=== PATIENT | female | born 1960 | race American Indian/Alaskan Native ===

== ENCOUNTER 2020-07-31 08:34 | Observation (INO) | payer OTHER ==
--- NOTE | 2020-07-31 08:41 | Emergency Department Report ---
ED Neuro Deficit HPI - General Chief Complaint: Neuro Symptoms/Deficit Stated Complaint: STROKE SX Time Seen by Provider: 07/31/20 08:40 Source: patient Mode of arrival: Ambulatory Limitations: No Limitations - History of Present Illness Initial Comments: 59-year-old female the past medical history of hypertension, smoker, and CVA 4 to 5 years ago without residual deficits presents to the hospital complains of neurologic deficits. Patient woke up this morning about 8 to 8:30 AM. She states she felt uncoordinated while getting dressed and having difficulty fastening her necklace. She states she was unable to focus and felt confused. At work today she was asking where her glasses were even though they were in her hand and also had difficulty holding objects in her right hand and writing her signature. Patient is right-hand dominant. Patient states she has similar symptoms involving the left hand with previous CVA in the past. Patient is compliant with her blood pressure medication every morning with last dose this a.m. She does not take aspirin daily. She denies pain. - Related Data Home Medications: Home Medications Medication Instructions Recorded Confirmed Last Taken Lisinopril [Zestril] 5 mg PO DAILY 07/31/20 07/31/20 07/31/20 Naproxen 500 mg PO DAILY 07/31/20 07/31/20 1 Day Ago ~07/30/20 Allergies/Adverse Reactions: Allergies Allergy/AdvReac Type Severity Reaction Status Date / Time codeine Allergy Unknown Verified 07/31/20 08:35 ED Review of Systems ROS: Stated complaint: STROKE SX Other details as noted in HPI Comment: All other systems reviewed and negative ED Past Medical Hx - Past Medical History Previous Medical History?: Yes Hx CVA: Yes - Surgical History Past Surgical History?: Yes Additional Surgical History: thyroid surgery. hysterectomy - Medications Home Medications: Home Medications Medication Instructions Recorded Confirmed Last Taken Type Lisinopril [Zestril] 5 mg PO DAILY 07/31/20 07/31/20 07/31/20 History Naproxen 500 mg PO DAILY 07/31/20 07/31/20 1 Day Ago History ~07/30/20 ED Neuro Physical Exam - General Limitations: No Limitations Suspected Stroke: Yes - Neurological Exam Neurological exam: Present: alert - NIHSS Assessment Interval: Baseline 1a. Level of Consciousness: alert/keenly responsive 1b. LOC Questions: answers both correctly 1c. LOC Commands: performs tasks correctly 2. Best Gaze: normal 3. Visual: no visual loss 4. Facial Palsy: normal symmetrical movement 5b. Motor Arm Right: no drift 5a. Motor Arm Left: no drift 6a. Motor Leg Left: no drift 6b. Motor Leg Right: no drift 7. Limb Ataxia: absent 8. Sensory: normal 9. Best Language: no aphasia 10. Dysarthria: mild/moderate dysarthria 11. Extinction/Inattention: no abnormality Total Score: 1 Stroke Severity: Minor Stroke ED Course Vital Signs 07/31/20 07/31/20 07/31/20 08:38 08:56 09:00 Pulse Rate 92 H 92 H 71 Respiratory 18 11 L Rate Blood Pressure 220/107 Blood Pressure 253/158 [Left] O2 Sat by Pulse 98 91 Oximetry 07/31/20 07/31/20 07/31/20 09:05 09:20 09:25 Pulse Rate 85 79 Respiratory 17 17 Rate Blood Pressure 206/110 210/109 Blood Pressure [Left] O2 Sat by Pulse 99 Oximetry 07/31/20 07/31/20 07/31/20 09:30 09:45 10:00 Pulse Rate 67 61 62 Respiratory 19 19 17 Rate Blood Pressure 206/110 203/105 208/114 Blood Pressure [Left] O2 Sat by Pulse 99 100 Oximetry 07/31/20 07/31/20 07/31/20 10:05 10:16 10:38 Pulse Rate 64 69 Respiratory 15 16 Rate Blood Pressure 208/114 210/92 194/80 Blood Pressure [Left] O2 Sat by Pulse 97 100 Oximetry 07/31/20 07/31/20 07/31/20 10:46 11:00 11:16 Pulse Rate 65 61 61 Respiratory 14 14 17 Rate Blood Pressure 185/149 210/103 216/81 Blood Pressure [Left] O2 Sat by Pulse 100 98 100 Oximetry 07/31/20 07/31/20 07/31/20 11:50 12:00 12:16 Pulse Rate 67 68 67 Respiratory 19 20 20 Rate Blood Pressure 216/81 222/99 222/90 Blood Pressure [Left] O2 Sat by Pulse 98 100 Oximetry 07/31/20 07/31/20 07/31/20 12:30 13:00 13:16 Pulse Rate 67 Respiratory 22 17 13 Rate Blood Pressure 222/90 173/104 197/110 Blood Pressure [Left] O2 Sat by Pulse 97 91 89 Oximetry 07/31/20 07/31/20 07/31/20 13:30 13:46 14:00 Pulse Rate Respiratory 21 15 Rate Blood Pressure 200/93 198/87 198/87 Blood Pressure [Left] O2 Sat by Pulse 95 74 L Oximetry 07/31/20 14:16 Pulse Rate Respiratory 18 Rate Blood Pressure 204/92 Blood Pressure [Left] O2 Sat by Pulse 98 Oximetry - Consultations Consultation #1: 07/31/20 09:19 Case was discussed with Dr. Gandhi teleneurologist who found the NIH stroke scale to be 0 and stroke symptoms greater than 4.5 hours since patient woke up experiencing neurologic deficits. Therefore, patient is not a TPA candidate. Recommend blood pressure control with initial systolic goal of less than 200 and she ordered labetalol 10 mg IV. - Lab Data Result diagrams: 07/31/20 08:39 07/31/20 08:39 Lab Results 07/31/20 07/31/20 07/31/20 Range/Units 08:39 08:39 08:39 WBC 6.8 (4.5-11.0) K/mm3 RBC 4.57 (3.65-5.03) M/mm3 Hgb 14.2 (10.1-14.3) gm/dl Hct 41.1 (30.3-42.9) % MCV 90 (79-97) fl MCH 31 (28-32) pg MCHC 35 H (30-34) % RDW 13.4 (13.2-15.2) % Plt Count 329 (140-440) K/mm3 Lymph % (Auto) 32.0 (13.4-35.0) % [place] % (Auto) 8.2 H (0.0-7.3) % Eos % (Auto) 4.8 H (0.0-4.3) % Baso % (Auto) 0.8 (0.0-1.8) % Lymph # (Auto) 2.2 (1.2-5.4) K/mm3 [place] # (Auto) 0.6 (0.0-0.8) K/mm3 Eos # (Auto) 0.3 (0.0-0.4) K/mm3 Baso # (Auto) 0.1 (0.0-0.1) K/mm3 Seg Neutrophils % 54.2 (40.0-70.0) % Seg Neutrophils # 3.7 (1.8-7.7) K/mm3 PT 12.6 (12.2-14.9) Sec. INR 0.93 (0.87-1.13) APTT 25.2 (24.2-36.6) Sec. Thrombin Time (15.1-19.6) Sec. Sodium 138 (137-145) mmol/L Potassium 3.6 (3.6-5.0) mmol/L Chloride 100.3 (98-107) mmol/L Carbon Dioxide 27 (22-30) mmol/L Anion Gap 14 mmol/L BUN 11 (7-17) mg/dL Creatinine 0.8 (0.6-1.2) mg/dL Estimated GFR > 60 ml/min BUN/Creatinine Ratio 14 % Glucose 160 H (65-100) mg/dL Hemoglobin A1c (4-6) % Calcium 9.8 (8.4-10.2) mg/dL Troponin T < 0.010 (0.00-0.029) ng/mL 07/31/20 07/31/20 Range/Units 08:39 08:39 WBC (4.5-11.0) K/mm3 RBC (3.65-5.03) M/mm3 Hgb (10.1-14.3) gm/dl Hct (30.3-42.9) % MCV (79-97) fl MCH (28-32) pg MCHC (30-34) % RDW (13.2-15.2) % Plt Count (140-440) K/mm3 Lymph % (Auto) (13.4-35.0) % [place] % (Auto) (0.0-7.3) % Eos % (Auto) (0.0-4.3) % Baso % (Auto) (0.0-1.8) % Lymph # (Auto) (1.2-5.4) K/mm3 [place] # (Auto) (0.0-0.8) K/mm3 Eos # (Auto) (0.0-0.4) K/mm3 Baso # (Auto) (0.0-0.1) K/mm3 Seg Neutrophils % (40.0-70.0) % Seg Neutrophils # (1.8-7.7) K/mm3 PT (12.2-14.9) Sec. INR (0.87-1.13) APTT (24.2-36.6) Sec. Thrombin Time 15.6 (15.1-19.6) Sec. Sodium (137-145) mmol/L Potassium (3.6-5.0) mmol/L Chloride (98-107) mmol/L Carbon Dioxide (22-30) mmol/L Anion Gap mmol/L BUN (7-17) mg/dL Creatinine (0.6-1.2) mg/dL Estimated GFR ml/min BUN/Creatinine Ratio % Glucose (65-100) mg/dL Hemoglobin A1c 6.7 H (4-6) % Calcium (8.4-10.2) mg/dL Troponin T (0.00-0.029) ng/mL - Radiology Data Radiology results: report reviewed CT head/brain wo con INDICATION: neuro deficits <6hrs or sx present upon awakening. TECHNIQUE: Routine CT head without contrast. All CT scans at this location are performed using CT dose reduction for ALARA by means of automated exposure control. COMPARISON: None. FINDINGS: BRAIN / INTRACRANIAL CONTENTS: No acute hemorrhage, mass effect, midline shift, or hydrocephalus. No appreciable acute large territorial or lacunar infarct. There are moderate areas of hypoat tenuation in the white matter of the cerebral hemispheres. Given the location and appearance, these most likely reflect chronic small vessel ischemic change. These are considered to be advanced (even for the patient's age) and probably indicate chronic hypertension, diabetes, and/or chronic kidney disease. ORBITS: No significant abnormality of visualized orbits. 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 There is no mucosal thickening. ADDITIONAL FINDINGS: None. IMPRESSION: 1. No acute intracranial abnormality. - Medical Decision Making 59-year-old female presents to the hospital with neurologic symptoms of mild confusion, difficulty focusing, right hand weakness, and change in speech fluency with mild dysarthria. Patient deemed not a TPA candidate by teleneurologist. Blood pressure extremely elevated upon presentation and patient does not know her baseline BP. She states she is compliant with her blood pressure medication. Patient passed swallowing screen and was provided as pirin after negative CT head report resulted. Patient will be admitted to the hospital for hypertensive encephalopathy versus TIA and further stroke work Case discussed with hospitalist at 9:35 AM patient to be admitted to Dr. Vásquez Critical Care Time: Yes Critical care time in (mins) excluding proc time.: 35 Critical care attestation.: If time is entered above; I have spent that time in minutes in the direct care of this critically ill patient, excluding procedure time. ED Disposition Clinical Impression: Hypertensive encephalopathy, TIA (transient ischemic attack) Disposition: 09 OP ADMIT IP TO THIS HOSP Is pt being admited?: Yes Condition: Stable
[2020-07-31 08:47] LABS: Basophils # (Auto) 0.1 K/mm3 (0.0-0.1); Basophils % (Auto) 0.8 % (0.0-1.8); Eosinophils # (Auto) 0.3 K/mm3 (0.0-0.4); Eosinophils % (Auto) 4.8 % (0.0-4.3); Hematocrit 41.1 % (30.3-42.9); Hemoglobin 14.2 gm/dl (10.1-14.3); Lymphocytes # (Auto) 2.2 K/mm3 (1.2-5.4); Mean Corpuscular HGB Conc 35 % (30-34); Mean Corpuscular Volume 90 fl (79-97); Monocytes # (Auto) 0.6 K/mm3 (0.0-0.8); Monocytes % (Auto) 8.2 % (0.0-7.3); Platelet Count 329 K/mm3 (140-440); Red Blood Count 4.57 M/mm3 (3.65-5.03); Red Cell Distribution Width 13.4 % (13.2-15.2)
[2020-07-31 08:57] LABS: INR 0.93 (0.87-1.13)
[2020-07-31 08:58] LABS: Partial Thromboplastin Time 25.2 Sec. (24.2-36.6)
--- NOTE | 2020-07-31 09:02 | Cat Scan Report ---
CT head/brain wo con INDICATION: neuro deficits <6hrs or sx present upon awakening. TECHNIQUE: Routine CT head without contrast. All CT scans at this location are performed using CT dos e reduction for ALARA by means of automated exposure control. COMPARISON: None. FINDINGS: BRAIN / INTRACRANIAL CONTENTS: No acute hemorrhage, mass effect, midline shift, or hydrocephalus. No appreciable acute large territorial or lacunar infarct. There are moderate areas of hypoattenuation i n the white matter of the cerebral hemispheres. Given the location and appearance, these most likely reflect chronic small vessel ischemic change. These are considered to be advanced (even for the patie nt's age) and probably indicate chronic hypertension, diabetes, and/or chronic kidney disease. ORBITS: No significant abnormality of visualized orbits. 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 There is no mucosal thickening. ADDITIONAL FINDINGS: None. IMPRESSION: 1. No acute intracranial abnormality. CODE STROKE: Time of Communication (HISTOLOGY SPECIALIST/CDT): 7:56 AM Licensed Practitioner Receiving Report: Dr. Larkin Signer Name: Mic Santillan MD Signed: 07/31/2020 8:58 AM Workstation Name: [id number]
--- NOTE | 2020-07-31 09:03 | Consultation ---
Medications and Allergies Allergies Allergy/AdvReac Type Severity Reaction Status Date / Time codeine Allergy Unknown Verified 07/31/20 08:35 Active Meds: Active Medications Labetalol HCl (Labetalol) 10 mg IV ONCE ONE Stop: 07/31/20 09:00 Physical Examination - Vital Signs Vital Signs: Vital Signs Pulse Resp BP Pulse Ox 92 H 18 253/158 98 07/31/20 08:38 07/31/20 08:38 07/31/20 08:38 07/31/20 08:38 Results - Laboratory Findings CBC and BMP: 07/31/20 08:39 Abnormal Lab Findings: Abnormal Labs 07/31/20 08:39 MCHC 35 H Crowley % (Auto) 8.2 H Eos % (Auto) 4.8 H Assessment and Plan [facility] Date of Service: 07/31/2020 08:37:12 Impression: Transient Ischemic Attack v Hypertensive Encephalopathy Comments/Sign-Out: 59 yo F h/o HTN, previous stroke with L hand weakness, no residual symptoms p/w slurred speech and left sided weakness upon awakening this morning. Pt states she took her lisinopril this morning. She arrived by private vehicle. Pt is able to give history. Mechanism of Stroke: Not Clear Metrics: Last Known Well: 07/30/2020 20:00:00 [facility] Notification Time: 07/31/2020 08:36:41 Arrival Time: 07/31/2020 08:35:00 Stamp Time: 07/31/2020 08:37:12 Time First Login Attempt: 07/31/2020 08:41:10 Video Start Time: 07/31/2020 08:41:10 Symptoms: slurred speech, R hand weakness NIHSS Start Assessment Time: 07/31/2020 08:50:17 Patient is not a candidate for Alteplase/Activase. Patient was not deemed candidate for Alteplase/Activase thrombolytics because of Last Well Known Above 4.[address] head showed no acute hemorrhage or acute core infarct. Our recommendations are outlined below. Recommendations: BP management Activate Stroke Protocol Admission/Order Set Stroke/Telemetry Floor Neuro Checks Bedside Swallow Eval DVT Prophylaxis IV Fluids, Normal Saline Head of Bed 30 Degrees Euglycemia and Avoid Hyperthermia (PRN Acetaminophen) Antiplatelet Therapy Recommended Sign Out: Discussed with Emergency Department Provider History of Present Illness: Patient is a 60 year old Female. Patient was brought by private transportation with symptoms of slurred speech, R hand weakness 59 yo F h/o HTN, previous stroke with L hand weakness, no residual symptoms p/w slurred speech and left sided weakness upon awakening this morning. Pt states she took her lisinopril this morning. She arrived by private vehicle. Pt is able to give history. Last seen normal was beyond 4.5 hours of presentation. Past Medical History: Hypertension Stroke Anticoagulant use: No Antiplatelet use: No Examination: BP(253/58), Pulse(92), Blood Glucose(130) 1A: Level of Consciousness - Alert; keenly responsive + 0 1B: Ask Month and Age - Both Questions Right + 0 1C: Blink Eyes & Squeeze Hands - Performs Both Tasks + 0 2: Test Horizontal Extraocular Movements - Normal + 0 3: Test Visual [place] - No Visual Loss + 0 4: Test Facial Palsy (Use Grimace if Obtunded) - Normal symmetry + 0 5A: Test Left Arm Motor Drift - No Drift for 10 Seconds + 0 5B: Test Right Arm Motor Drift - No Drift for 10 Seconds + 0 6A: Test Left Leg Motor Drift - No Drift for 5 Seconds + 0 6B: Test Right Leg Motor Drift - No Drift for 5 Seconds + 0 7: Test Limb Ataxia (FNF/Heel-Roger) - No Ataxia + 0 8: Test Sensation - Normal; No sensory loss + 0 9: Test Language/Aphasia - Normal; No aphasia + 0 10: Test Dysarthria - Normal + 0 11: Test Extinction/Inattention - No abnormality + 0 NIHSS Score: 0 Patient/Family was informed the Neurology Consult would happen via TeleHealth consult by way of interactive audio and video telecommunications and consented to receiving care in this manner. Due to the immediate potential for life-threatening deterioration due to underlying acute neurologic illness, I spent 30 minutes providing critical care. This time includes time for face to face visit via telemedicine, review of medical records, imaging studies and discussion of findings with providers, the patient and/or family. Dr Tiny Gandhi [facility] Case [id number]
[2020-07-31 09:05] LABS: BUN/Creatinine Ratio 14; Blood Urea Nitrogen 11 mg/dL (7-17); Calcium 9.8 mg/dL (8.4-10.2); Hemolysis Index 6
[2020-07-31] MEDS ORDERED: ASPIRIN 325 MG TAB PO ONE (09:12)
[2020-07-31] MEDS ORDERED: hydrALAZINE 20 MG/1 ML INJ IV PRN (11:00)
[2020-07-31] MEDS ORDERED: LISINOPRIL 5 MG TAB PO SCH (11:00)
[2020-07-31] MEDS ORDERED: ACETAMINOPHEN 325 MG TAB PO PRN (11:00)
[2020-07-31] MEDS ORDERED: PROMETHAZINE 25 MG RECT SUPP PR PRN (11:00)
[2020-07-31] MEDS ORDERED: ONDANSETRON 4 MG/2 ML INJ IV PRN (11:00)
[2020-07-31] MEDS ORDERED: MAGNESIUM HYDROXIDE (MOM) ORAL LIQD UDC PO PRN (11:00)
[2020-07-31] MEDS ORDERED: DEXTROSE 50% IN WATER (25GM) 50 ML SYRINGE IV PRN (11:00)
[2020-07-31] MEDS: INSULIN REGULAR, HUMAN 100 UNIT/ML 3ML VIAL SUB-Q SCH ×2 (12:05→18:07)
--- NOTE | 2020-07-31 12:42 | History and Physical Report ---
History of Present Illness Date of admission: 07/31/20 10:01 History of present illness: This is a 59-year-old female with HTN, CVA (2016) with residual left-sided weakness, smoker (2 cigars/day for 40 years), HLD and DM (patient states she was taken off her medication within 2 months of her stroke) who presented to the emergency department on 07/31 with neurological deficits which started a around 0800 with uncoordination, inability to focus, feeling confused and difficulty holding things in her right hand. Patient stated the symptoms were similar to her previous CVA therefore she presented to the emergency department. Patient stated she took her morning lisinopril however when she arrived to the emergency department her blood pressure was 253/158 and she received a total of 20 mg of labetalol in the ED with a systolic blood pressure goal of 200. Telemetry neurology was consulted and patient was not a candidate for a TPA as she was outside of her window of treatment. Her last known well was 07/[address] head obtained on 07/31 in the emergency department showed no acute intracranial abnormality. Patient was initiated on stroke protocol and we will obtain an MRI brain, MRA neck/head, PT/ST/OT consult and she will be admitted to IMCU for CVA work-up and for closer monitoring of her blood pressure. Advanced care planning conducted in the ED. Past History Past Medical History: hypertension, other (Possible diabetes and HLD, unknown thyroid disease) Past Surgical History: hysterectomy, Other (Goiter removal) Social history: single, lives with family, smoking, full code. denies: alcohol abuse, prescription drug abuse, IV drug use Family history: hypertension Medications and Allergies Allergies Allergy/AdvReac Type Severity Reaction Status Date / Time codeine Allergy Unknown Verified 07/31/20 08:35 Home Medications Medication Instructions Recorded Confirmed Last Taken Type Lisinopril [Zestril] 5 mg PO DAILY 07/31/20 07/31/20 07/31/20 History Naproxen 500 mg PO DAILY 07/31/20 07/31/20 1 Day Ago History ~07/30/20 Active Meds: Active Medications Acetaminophen (Tylenol) 650 mg PO Q4H PRN PRN Reason: Pain, Mild (1-3) Atorvastatin Calcium (Lipitor) 40 mg PO QHS [facility] Bisacodyl (Dulcolax) 10 mg DE QDAY PRN PRN Reason: Constipation Dextrose (D50w (25gm) Syringe) 50 ml IV Q30MIN PRN; Protocol PRN Reason: Hypoglycemia Hydralazine HCl (Apresoline) 10 mg IV Q4H PRN PRN Reason: Hypertension Insulin Human Regular (Humulin R) 0 unit SUB-Q ACHS [facility]; Protocol Last Admin: 07/31/20 12:05 Dose: Not Given Documented by: Labetalol HCl (Labetalol) 10 mg IV ONCE [facility] Stop: 07/31/20 15:00 Lisinopril (Zestril) 10 mg PO DAILY [facility] Magnesium Hydroxide (Milk Of Magnesia) 30 ml PO Q4H PRN PRN Reason: Constipation Metoclopramide HCl (Reglan) 10 mg PO Q8HR PRN PRN Reason: Nausea And Vomiting Ondansetron HCl (Zofran) 4 mg IV Q8H PRN PRN Reason: Nausea And Vomiting Promethazine HCl (Phenergan) 25 mg DE Q6H PRN PRN Reason: Nausea And Vomiting Sodium Chloride (Sodium Chloride Flush Syringe 10 Ml) 10 ml IV PRN PRN PRN Reason: LINE FLUSH Review of Systems Constitutional: fatigue, no weight loss, no weight gain, no fever, no chills, no sweats, no night sweats, no anorexia, no weakness, no malaise, no lethargy, no chronic headaches Ears, nose, mouth and throat: no ear pain, no ear discharge, no tinnitis, no decreased hearing, no nose pain, no nasal congestion, no epistaxis, no bleeding gums, no dental pain, no mouth pain, no dysphagia, no hoarseness, no sore thro at, no post-nasal drip, no headache, no pain front of neck, no neck fullness/pressure, no neck lump Cardiovascular: high blood pressure, no chest pain, no orthopnea, no palpit ations, no rapid/irregular heart beat, no edema, no syncope, no lightheadedness, no shortness of breath, no dyspnea on exertion, no paroxysmal nocturnal dyspnea, no claudication, no phlebitis, no leg edema Respiratory: no cough, no cough with sputum, no excessive sputum, no hemoptysis, no shortness of breath, no dyspnea on exertion, no congestion, no wheezing, no pleurisy, no pain, no pain on inspiration Gastrointestinal: no abdominal pain, no nausea, no vomiting, no diarrhea, no constipation, no change in bowel habits, no hematemesis, no coffee ground emesis, no BRBPR, no hematochezia, no loss of appetite Genitourinary Female: menorrhagia, no pelvic pain, no flank pain, no urinary frequency, no urgency, no stress incontinence, no hematuria, no nocturia Menstruation: post hysterectomy Rectal: no pain, no incontinence, no bleeding, no hemorrhoids Musculoskeletal: arthritis, no neck stiffness, no neck pain, no shooting arm pain, no arm numbness/tingling, no low back pain, no shooting leg pain, no leg numbness/tingling, no frequent falls, no prior amputations Integumentary: no rash, no pruritis, no redness, no sores, no wounds, no jaundice, no boils Neurological: no head injury, no transient paralysis, no paralysis, no weakness, no parathesias, no numbness, no tingling, no syncope, no vertigo, no headaches, no sensory deficit, no double vision, no loss of vision Psychiatric: no anxiety, no memory loss, no change in sleep habits, no sleep disturbances, no insomnia, no hypersomnia, no change in appetite, no suicidal ideation, no disorientation, no hallucinations, no paranoia, no depression Endocrine: cold intolerance, heat intolerance, no polyphagia, no excessive thirst, no polydipsia, no excessive sweating, no flushing, no weight change, no increase in ring/shoe/hat size, no proptosis, no palpatations, no high blood sugars, no low blood sugars Hematologic/Lymphatic: no easy bruising, no easy bleeding Allergic/Immunologic: no urticaria Exam - Constitutional Vitals: Temp Pulse Resp BP Pulse Ox 64 17 208/114 100 07/31/20 10:05 07/31/20 10:00 07/31/20 10:05 07/31/20 10:00 General appearance: Present: no acute distress - EENT Eyes: Present: PERRL, EOM intact ENT: hearing intact, clear oral mucosa - Neck Neck: Present: supple, normal ROM - Respiratory Respiratory effort: normal Respiratory: bilateral: CTA - Cardiovascular Rhythm: regular Heart Sounds: Present: S1 & S2. Absent: systolic murmur, diastolic murmur - Extremities Extremities: no ischemia, pulses intact, pulses symmetrical, No edema, normal temperature, normal color, Full ROM Peripheral Pulses: within normal limits - Abdominal General gastrointestinal: Present: soft, non-tender, non-distended, normal bowel sounds - Integumentary Integumentary: Present: clear, warm, dry - Musculoskeletal Musculoskeletal: strength equal bilaterally - Psychiatric Psychiatric: cooperative - Neurologic Neurologic: CNII-XII intact, no focal deficits, moves all extremities - Allied Health Allied health notes reviewed: nursing HEART Score - HEART Score Troponin: Troponin T < 0.010 ng/mL (0.00-0.029) 07/31/20 08:39 Results - Labs CBC & Chem 7: 07/31/20 08:39 07/31/20 08:39 Labs: Laboratory Last Values WBC 6.8 K/mm3 (4.5-11.0) 07/31/20 08:39 RBC 4.57 M/mm3 (3.65-5.03) 07/31/20 08:39 Hgb 14.2 gm/dl (10.1-14.3) 07/31/20 08:39 Hct 41.1 % (30.3-42.9) 07/31/20 08:39 MCV 90 fl (79-97) 07/31/20 08:39 MCH 31 pg (28-32) 07/31/20 08:39 MCHC 35 % (30-34) H 07/31/20 08:39 RDW 13.4 % (13.2-15.2) 07/31/20 08:39 Plt Count 329 K/mm3 (140-440) 07/31/20 08:39 Lymph % (Auto) 32.0 % (13.4-35.0) 07/31/20 08:39 [place] % (Auto) 8.2 % (0.0-7.3) H 07/31/20 08:39 Eos % (Auto) 4.8 % (0.0-4.3) H 07/31/20 08:39 Baso % (Auto) 0.8 % (0.0-1.8) 07/31/20 08:39 Lymph # (Auto) 2.2 K/mm3 (1.2-5.4) 07/31/20 08:39 [place] # (Auto) 0.6 K/mm3 (0.0-0.8) 07/31/20 08:39 Eos # (Auto) 0.3 K/mm3 (0.0-0.4) 07/31/20 08:39 Baso # (Auto) 0.1 K/mm3 (0.0-0.1) 07/31/20 08:39 Seg Neutrophils % 54.2 % (40.0-70.0) 07/31/20 08:39 Seg Neutrophils # 3.7 K/mm3 (1.8-7.7) 07/31/20 08:39 PT 12.6 Sec. (12.2-14.9) 07/31/20 08:39 INR 0.93 (0.87-1.13) 07/31/20 08:39 APTT 25.2 Sec. (24.2-36.6) 07/31/20 08:39 Thrombin Time 15.6 Sec. (15.1-19.6) 07/31/20 08:39 Sodium 138 mmol/L (137-145) 07/31/20 08:39 Potassium 3.6 mmol/L (3.6-5.0) 07/31/20 08:39 Chloride 100.3 mmol/L (98-107) 07/31/20 08:39 Carbon Dioxide 27 mmol/L (22-30) 07/31/20 08:39 Anion Gap 14 mmol/L 07/31/20 08:39 BUN 11 mg/dL (7-17) 07/31/20 08:39 Creatinine 0.8 mg/dL (0.6-1.2) 07/31/20 08:39 Estimated GFR > 60 ml/min 07/31/20 08:39 BUN/Creatinine Ratio 14 % 07/31/20 08:39 Glucose 160 mg/dL (65-100) H 07/31/20 08:39 POC Glucose 114 mg/dL (70-105) H 07/31/20 12:10 Hemoglobin A1c 6.7 % (4-6) H 07/31/20 08:39 Calcium 9.8 mg/dL (8.4-10.2) 07/31/20 08:39 Troponin T < 0.010 ng/mL (0.00-0.029) 07/31/20 08:39 - Diagnostic Impressions Diagnostic Impressions: 07/31 CT head: No acute intracranial abnormality. Assessment and Plan Advance Directives: No VTE prophylaxis?: Chemical, Mechanical Plan of care discussed with patient/family: Yes - Patient Problems (1) Hypertensive emergency Current Visit: Yes Status: Acute Plan to address problem: Presenting blood pressure 253/158 S/p labetalol x2 in the ED Patient will be admitted to IMCU for further blood pressure monitoring Resume home hypertensive regimen and adjust As needed hydralazine and labetalol Blood pressure monitoring per protocol (2) CVA (cerebral vascular accident) Current Visit: Yes Status: Acute Plan to address problem: Presented with uncoordination, slurred speech Telemetry neuro suggested antiplatelet therapy, stroke protocol Stroke protocol initiated Neurology consulted 07/31 CTh showed no acute abnormality 07/31 MRI brain pending 07/31 MRA head/neck pending 07/31 TTE pending Aspiration and fall precautions ST/OT/PT consulted Aspirin and statin therapy Goal systolic blood pressure less than 200 for 24 hours Maintain euglycemia and euthymia Accu-Cheks every 4 for 24 hours with SSI (3) HTN (hypertension) Current Visit: Yes Status: Chronic Plan to address problem: Resume home antihypertensive regimen and increased dose Blood pressure monitor per protocol As needed hydralazine and labetalol (4) HLD (hyperlipidemia) Current Visit: Yes Status: Acute Plan to address problem: Initiate statin therapy Per the patient patient was taken off of statin therapy after 1 to 2 months prior stroke (5) DVT prophylaxis Current Visit: Yes Status: Acute Plan to address problem: SCDs to bilateral lower extremities while in bed Lovenox subcu (6) Full code status Current Visit: Yes Status: Acute
[2020-07-31] MEDS ORDERED: METOCLOPRAMIDE 10 MG TAB PO PRN (14:00)
--- NOTE | 2020-07-31 14:50 | Consultation ---
History of Present Illness Consult date: 07/31/20 Reason for Consult: CVA Chief complaint: Weakness History of present illness: 59 yo female with htn, dm, hld, cva w/ left-sided weakness, tobacco abuse, who presented initially with incoordination and weakness of the right hand, slurred speech, and difficulty to concentrate but in the setting of an elevated BP of 253/158. She notes resolution of slurred speech and cognition (concentration) but notes continued weakness of the right fingers (only). She notes no specific triggers and denies any other symptoms. Notes compliance with her medications except she is not currently on aspirin as she had taken it for only 6 months after the initial stroke. Past History Past Medical History: hypertension, other (Possible diabetes and HLD, unknown thyroid disease) Past Surgical History: hysterectomy, Other (Goiter removal) Social history: single, lives with family, smoking, full code. denies: alcohol abuse, prescription drug abuse, IV drug use Family history: hypertension Medications and Allergies Allergies Allergy/AdvReac Type Severity Reaction Status Date / Time codeine Allergy Unknown Verified 07/31/20 08:35 Home Medications Medication Instructions Recorded Confirmed Last Taken Type Lisinopril [Zestril] 5 mg PO DAILY 07/31/20 07/31/20 07/31/20 History Naproxen 500 mg PO DAILY 07/31/20 07/31/20 1 Day Ago History ~07/30/20 Active Meds: Active Medications Acetaminophen (Tylenol) 650 mg PO Q4H PRN PRN Reason: Pain, Mild (1-3) Aspirin (Baby Aspirin) 81 mg PO QDAY [facility] Atorvastatin Calcium (Lipitor) 40 mg PO QHS [facility] Bisacodyl (Dulcolax) 10 mg PA QDAY PRN PRN Reason: Constipation Dextrose (D50w (25gm) Syringe) 50 ml IV Q30MIN PRN; Protocol PRN Reason: Hypoglycemia Hydralazine HCl (Apresoline) 10 mg IV Q4H PRN PRN Reason: Hypertension Insulin Human Regular (Humulin R) 0 unit SUB-Q ACHS [facility]; Protocol Last Admin: 07/31/20 12:05 Dose: Not Given Documented by: Labetalol HCl (Labetalol) 10 mg IV ONCE [facility] Stop: 07/31/20 15:00 Lisinopril (Zestril) 10 mg PO DAILY [facility] Magnesium Hydroxide (Milk Of Magnesia) 30 ml PO Q4H PRN PRN Reason: Constipation Metoclopramide HCl (Reglan) 10 mg PO Q8HR PRN PRN Reason: Nausea And Vomiting Ondansetron HCl (Zofran) 4 mg IV Q8H PRN PRN Reason: Nausea And Vomiting Promethazine HCl (Phenergan) 25 mg PA Q6H PRN PRN Reason: Nausea And Vomiting Sodium Chloride (Sodium Chloride Flush Syringe 10 Ml) 10 ml IV PRN PRN PRN Reason: LINE FLUSH Review of Systems All systems: negative (except as per HPI;) Physical Examination - Vital Signs Vital Signs: Vital Signs Pulse Resp BP Pulse Ox 92 H 18 253/158 98 07/31/20 08:38 07/31/20 08:38 07/31/20 08:38 07/31/20 08:38 - Additional Exam Additional Exam: Gen: nad, well-nourished; Head: normocephalic; Eyes: no gaze deviation; no ptosis; ENT: normal vocalization; CVS: warm and well-perfused; Pulm: no respiratory distress; GI: non-distended, protuberant; Ext: no cyanosis at distal extremities; Skin: no acute rash at distal extremities; Heme: no pathologic ecchymosis at distal extremities; Neuro: alert, oriented to name, age, month, surroundings, no dysarthria, no aphasia, CN 2 - PERRL, visual pratt intact, CN 3, 4, 6 - EOMI, CN 5 - facial sensation symmetric to light touch, CN 7 - facial movement symmetric, CN 8 - hearing grossly intact, CN 9, 10 - uvula midline, CN 11 - shrug symmetric, CN 12 - tongue midline; Motor - at least 4+/5 in all exts except 4/5 at left hand; 4- /5 w/ finger flexion/extension on the right, 4/5 at left foot; Sensory - light touch symmetric, Cerebellar - fnf /hts intact, Gait - deferred secondary to fall risk; NIHSS (1a.) Level of Consciousness:0 (1b.) LOC Questions:0 (1c.) LOC Commands:0 (2.) Best Gaze:0 (3.) Visual:0 (4.) Facial Palsy:0 (5a.) Motor Arm, Left:0 (5b.) Motor Arm, Right:0 (6a.) Motor Leg, Left:0 (6b.) Motor Leg, Right:0 (7.) Limb Ataxia:0 (8.) Sensory:0 (9.) Best Language:0 (10.) Dysarthria:0 (11.) Extinction and Inattention:0 NIHSS Total Score:0 Results - Laboratory Findings CBC and BMP: 07/31/20 08:39 07/31/20 08:39 Abnormal Lab Findings: Abnormal Labs 07/31/20 07/31/20 07/31/20 08:39 08:39 08:39 MCHC 35 H [place] % (Auto) 8.2 H Eos % (Auto) 4.8 H Glucose 160 H POC Glucose Hemoglobin A1c 6.7 H 07/31/20 12:10 MCHC [place] % (Auto) Eos % (Auto) Glucose POC Glucose 114 H Hemoglobin A1c Assessment and Plan 59 yo female with htn, dm, hld, previous ischemic stroke, who presents with a transient episode of dysarthria and cognitive changes and with continued right hand weakness with noted bilateral ischemic strokes, in the setting of possible transient hypertensive emergency. PLAN 1. Acute Ischemic Stroke: [ASA 325 mg PO qday, MRI Brain/MRA Head reports reviewed (images not available), TTEcho report pending, recommend CUS, confirm LDL/HgbA1C/TSH, baseline telemetry, SBP goal 160-200 mmHg and DBP 80-100 mmHg x24 hours and then slowly normalize. Statin therapy for a goal LDL of 70, when patient passes swallow evaluation. OTevaluation. Long-term risk-factor modification, including a strict diet/exercise regimen for secondary stroke prophylaxis. 2. Hypertension - goal SBP 160-200 mmHg and DBP 80-200 mmHg x 24 more hours and then slowly normalize. 3. Diabetes Mellitus - maintain euglycemia. 4. Dyslipidemia - goal LDL of 70 w/ statin therapy if no contraindications. 5. Right hand weakness - ot evaluation/monitoring. Nick Lopez MD Neurology
--- NOTE | 2020-07-31 15:38 | Magnetic Resonance Report ---
MRI BRAIN WITHOUT CONTRAST, MRA HEAD WITHOUT CONTRAST INDICATION / CLINICAL INFORMATION: stroke. TECHNIQUE: Multiplanar, multi sequential MRI images of the brain. Routine MRA of the head is performed. 3-D/MIP reformats postprocessed. Percentage stenosis is determined by direct quantitative measurements of di stal internal carotid artery diameter compared with normal reference segments or by criteria similar to NASCET where applicable. COMPARISON: None available. FINDINGS: MR BRAIN: BRAIN / INTRACRANIAL CONTENTS: There are small acute lacunar infarcts in the bilateral centrum semiov arsenio. There is no associated hemorrhage or adverse mass effect. There is no cortical infarct. There is no hemorrhage, hydrocephalus, or other acute abnormality. There is a small chronic lacunar infarct i n the left rebeca and there are multiple chronic lacunar infarcts in the bilateral periventricular whit e matter.. There are small foci of hemosiderin deposition in the bilateral cerebral hemispheres likely reflectin g changes related to chronic hypertension. There is moderate chronic small vessel ischemic change in the cerebral white matter. CRANIOCERVICAL JUNCTION: No significant abnormality. VASCULAR FLOW-VOIDS: No significant abnormality. ORBITS: No significant abnormality of visualized orbits. SINUSES / MASTOIDS: No significant abnormality of visualized sinuses and mastoid air cells. ADDITIONAL FINDINGS: None. MRA HEAD: Intracranial vertebral arteries: No significant abnormality. Basilar artery: No significant abnormality. Posterior cerebral arteries: No significant abnormality. Intracranial internal carotid arteries: No significant abnormality. Anterior cerebral arteries: No significant abnormality. Middle cerebral arteries: No significant abnormality. Additional findings: None. IMPRESSION: 1. Tiny bilateral lacunar infarcts in the bilateral centrum semiovale. 2. Findings likely reflecting chronic hypertension including a few small chronic cerebral white matte r microhemorrhages and chronic small vessel ischemic change and multifocal chronic lacunar infarcts i n the cerebral white matter. Signer Name: Mic Santillan MD Signed: 07/31/2020 3:34 PM Workstation Name: [id number]
[2020-08-01] MEDS: INSULIN REGULAR, HUMAN 100 UNIT/ML 3ML VIAL SUB-Q SCH ×5 (05:46→21:52)
[2020-08-01 09:42] LABS: Blood Urea Nitrogen 13 mg/dL (7-17); Calcium 9.9 mg/dL (8.4-10.2); Chol/HDL Ratio 3.79 %; HDL Cholesterol 44 mg/dL (40-59); Hemolysis Index 2; LDL Cholesterol,Direct 115 mg/dL (50-130)
[2020-08-01 09:44] LABS: BUN/Creatinine Ratio 19
[2020-08-01] MEDS: LISINOPRIL 5 MG TAB PO SCH (10:15)
[2020-08-01] MEDS: ASPIRIN 81 MG TAB CHEW PO SCH (10:15)
[2020-08-01] MEDS: traMADol 50 MG TAB PO PRN (10:18)
--- NOTE | 2020-08-01 11:37 | Progress Note ---
Assessment and Plan Assessment and plan: (1) Hypertensive emergency Current Visit: Yes Status: Acute Plan to address problem: Presenting blood pressure 253/158 S/p labetalol x2 in the ED Patient will be admitted to IMCU for further blood pressure monitoring Resume home hypertensive regimen and adjust As needed hydralazine and labetalol Blood pressure monitoring per protocol (2) CVA (cerebral vascular accident) Current Visit: Yes Status: Acute Plan to address problem: Presented with uncoordination, slurred speech Telemetry neuro suggested antiplatelet therapy, stroke protocol Stroke protocol initiated Neurology consulted 07/31 CTh showed no acute abnormality 07/31 MRI brain pending 07/31 MRA head/neck pending 07/31 TTE pending Aspiration and fall precautions ST/OT/PT consulted Aspirin and statin therapy Goal systolic blood pressure less than 200 for 24 hours Maintain euglycemia and euthymia Accu-Cheks every 4 for 24 hours with SSI (3) HTN (hypertension) Current Visit: Yes Status: Chronic Plan to address problem: Resume home antihypertensive regimen and increased dose Blood pressure monitor per protocol As needed hydralazine and labetalol (4) HLD (hyperlipidemia) Current Visit: Yes Status: Acute Plan to address problem: Initiate statin therapy Per the patient patient was taken off of statin therapy after 1 to 2 months prior stroke (5) DVT prophylaxis Current Visit: Yes Status: Acute Plan to address problem: SCDs to bilateral lower extremities while in bed Lovenox subcu (6) Full code status Current Visit: Yes Status: Acute 08/01/2020 -Patient's slurred speech and weakness is getting better. Blood pressure is in target. Target blood pressure per neurology recommendation is between 160 and 200. Patient is on oral blood pressure medications. MRI showed bilateral lacunar infarcts. Will follow with neurology for further recommendation. Patient started on diet. PT OT will evaluate the patient. Patient is on aspirin and statin. Patient need to adjust her blood pressure medication at the time of discharge. History Interval history: Patient was seen and evaluated this morning Patient said her speech and arm weakness is getting better Hospitalist Physical - Physical exam Narrative exam: Not in cardiopulmonary distress. The patient appeared well nourished and normally developed. Vital signs as documented. Head exam is unremarkable. No scleral icterus . Neck is without jugular venous distension, thyromegaly, or carotid bruits. Lungs are clear to auscultation. Cardiac exam reveals regular rate and Rhythm. Abdominal exam reveals normal bowel sounds, nontender, no organomegaly. Extremities are nonedematous and both femoral and pedal pulses are normal. [employer]INE: Alert and oriented 3. No focal weakness. - Constitutional Vitals: Temp Pulse Resp BP Pulse Ox 98.6 F 76 23 117/84 91 08/01/20 08:00 08/01/20 10:30 08/01/20 10:30 08/01/20 10:30 08/01/20 10:30 General appearance: Present: no acute distress HEART Score - HEART Score Troponin: Troponin T < 0.010 ng/mL (0.00-0.029) 07/31/20 08:39 Results - Labs CBC & Chem 7: 07/31/20 08:39 08/01/20 08:52 Labs: Laboratory Last Values WBC 6.8 K/mm3 (4.5-11.0) 07/31/20 08:39 RBC 4.57 M/mm3 (3.65-5.03) 07/31/20 08:39 Hgb 14.2 gm/dl (10.1-14.3) 07/31/20 08:39 Hct 41.1 % (30.3-42.9) 07/31/20 08:39 MCV 90 fl (79-97) 07/31/20 08:39 MCH 31 pg (28-32) 07/31/20 08:39 MCHC 35 % (30-34) H 07/31/20 08:39 RDW 13.4 % (13.2-15.2) 07/31/20 08:39 Plt Count 329 K/mm3 (140-440) 07/31/20 08:39 Lymph % (Auto) 32.0 % (13.4-35.0) 07/31/20 08:39 Kleberg % (Auto) 8.2 % (0.0-7.3) H 07/31/20 08:39 Eos % (Auto) 4.8 % (0.0-4.3) H 07/31/20 08:39 Baso % (Auto) 0.8 % (0.0-1.8) 07/31/20 08:39 Lymph # (Auto) 2.2 K/mm3 (1.2-5.4) 07/31/20 08:39 Kleberg # (Auto) 0.6 K/mm3 (0.0-0.8) 07/31/20 08:39 Eos # (Auto) 0.3 K/mm3 (0.0-0.4) 07/31/20 08:39 Baso # (Auto) 0.1 K/mm3 (0.0-0.1) 07/31/20 08:39 Seg Neutrophils % 54.2 % (40.0-70.0) 07/31/20 08:39 Seg Neutrophils # 3.7 K/mm3 (1.8-7.7) 07/31/20 08:39 PT 12.6 Sec. (12.2-14.9) 07/31/20 08:39 INR 0.93 (0.87-1.13) 07/31/20 08:39 APTT 25.2 Sec. (24.2-36.6) 07/31/20 08:39 Thrombin Time 15.6 Sec. (15.1-19.6) 07/31/20 08:39 Sodium 142 mmol/L (137-145) 08/01/20 08:52 Potassium 3.9 mmol/L (3.6-5.0) 08/01/20 08:52 Chloride 102.1 mmol/L (98-107) 08/01/20 08:52 Carbon Dioxide 30 mmol/L (22-30) 08/01/20 08:52 Anion Gap 14 mmol/L 08/01/20 08:52 BUN 13 mg/dL (7-17) 08/01/20 08:52 Creatinine 0.7 mg/dL (0.6-1.2) 08/01/20 08:52 Estimated GFR > 60 ml/min 08/01/20 08:52 BUN/Creatinine Ratio 19 % 08/01/20 08:52 Glucose 142 mg/dL (65-100) H 08/01/20 08:52 POC Glucose 156 mg/dL (70-105) H 08/01/20 05:59 Hemoglobin A1c 6.7 % (4-6) H 07/31/20 08:39 Calcium 9.9 mg/dL (8.4-10.2) 08/01/20 08:52 Troponin T < 0.010 ng/mL (0.00-0.029) 07/31/20 08:39 Triglycerides 79 mg/dL (2-149) 08/01/20 08:52 Cholesterol 167 mg/dL (50-199) 08/01/20 08:52 LDL Cholesterol Direct 115 mg/dL (50-130) 08/01/20 08:52 HDL Cholesterol 44 mg/dL (40-59) 08/01/20 08:52 Cholesterol/HDL Ratio 3.79 % 08/01/20 08:52 TSH 0.580 mlU/mL (0.270-4.200) 07/31/20 14:20 Thyroxine (T4) 6.6 ug/dL (4.0-12.0) 07/31/20 14:20 Shi/IV: Voiding Method Toilet IV Catheter Type [Left INT / Saline Lock Antecubital] Active Medications - Current Medications Current Medications: Generic Name Dose Route Start Last Admin Trade Name Freq PRN Reason Stop Dose Admin Acetaminophen 650 mg 07/31/20 11:00 Tylenol PO Q4H PRN Pain, Mild (1-3) Aspirin 81 mg 08/01/20 10:00 08/01/20 10:15 Baby Aspirin PO 81 mg QDAY NAGI Administration Atorvastatin Calcium 40 mg 07/31/20 22:00 07/31/20 21:14 Lipitor PO 40 mg QHS NAGI Administration Bisacodyl 10 mg 07/31/20 11:00 Dulcolax NC QDAY PRN Constipation Dextrose 50 ml 07/31/20 11:00 D50w (25gm) Syringe IV Q30MIN PRN Hypoglycemia Protocol Hydralazine HCl 10 mg 07/31/20 11:00 Apresoline IV Q4H PRN Hypertension Insulin Human Regular 0 unit 07/31/20 11:30 08/01/20 08:39 Humulin R SUB-Q Not Given ACHS NAGI Protocol Lisinopril 10 mg 08/01/20 10:00 08/01/20 10:15 Zestril PO 10 mg DAILY NAGI Administration Magnesium Hydroxide 30 ml 07/31/20 11:00 Milk Of Magnesia PO Q4H PRN Constipation Metoclopramide HCl 10 mg 07/31/20 14:00 Reglan PO Q8HR PRN Nausea And Vomiting Ondansetron HCl 4 mg 07/31/20 11:00 Zofran IV Q8H PRN Nausea And Vomiting Promethazine HCl 25 mg 07/31/20 11:00 Phenergan NC Q6H PRN Nausea And Vomiting Sodium Chloride 10 ml 07/31/20 11:00 Sodium Chloride Flush Syringe 10 Ml IV PRN PRN LINE FLUSH Tramadol HCl 50 mg 08/01/20 09:53 08/01/20 10:18 Ultram PO 50 mg Q4H PRN Administration Pain, Moderate (4-6)
[2020-08-02 06:54] LABS: Blood Urea Nitrogen 22 mg/dL (7-17); Hemolysis Index 0
[2020-08-02 06:56] LABS: BUN/Creatinine Ratio 31
[2020-08-02] MEDS: INSULIN REGULAR, HUMAN 100 UNIT/ML 3ML VIAL SUB-Q SCH ×2 (07:35→14:26)
[2020-08-02] MEDS: LISINOPRIL 5 MG TAB PO SCH (10:28)
[2020-08-02] MEDS: ASPIRIN 81 MG TAB CHEW PO SCH (10:28)
[2020-08-02] MEDS: traMADol 50 MG TAB PO PRN (10:30)
[2020-08-02] MEDS ORDERED: amLODIPine 5 MG TAB PO SCH (12:00)
[2020-08-02] MEDS: hydrALAZINE 25 MG TAB PO SCH ×2 (12:16→15:33)
--- NOTE | 2020-08-02 13:53 | Discharge Summary ---
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
[2020-08-02 16:04] VITALS: BP 154/75
== END 2020-08-02 17:30 | disposition home or self-care (01) ==
LOC: ED 08:34 → 4A 10:01 → IMCU 10:56 → 4A 08-01 17:16
PROVIDERS: ADMIT Internal Medicine; ATTEND Internal Medicine
DX: I67.4 Hypertensive encephalopathy (principal); G45.9 Transient cerebral ischemic attack, unspecified; I16.0 Hypertensive urgency; I63.9 Cerebral infarction, unspecified; I10 Essential (primary) hypertension; E11.9 Type 2 diabetes mellitus without complications; E78.5 Hyperlipidemia, unspecified; M62.81 Muscle weakness (generalized); F17.210 Nicotine dependence, cigarettes, uncomplicated; R29.701 NIHSS score 1; Z90.710 Acquired absence of both cervix and uterus; Z98.890 Other specified postprocedural states; Z79.4 Long term (current) use of insulin; Z79.899 Other long term (current) drug therapy
CPT/HCPCS: 36415; 70450; 70544; 70551; 80048; 80061; 82962; 83036; 84436; 84443; 84481; 84484; 85025; 85610; 85670; 85730; 92523; 92610; 96372; 96374; 96375; 96376; 97161; 99291; A9270; G0378; J0360; J1815